=== PATIENT | male | born 1960 | race Caucasian/White ===

== ENCOUNTER 2017-04-14 16:45 | Emergency (ER) | payer BC ==
[2017-04-14 16:54] VITALS: RESP 18
--- NOTE | 2017-04-14 17:16 | EDPHY ---
H & P Time Seen by Provider: 04/14/17 17:00 HPI/ROS: CHIEF COMPLAINT: Chest pain HISTORY OF PRESENT ILLNESS: The patient is an anticoagulated 56 y/o male with a history of multiple DVTs and a pulmonary embolism in 2007, arriving with his , complaining of chest pain onset this afternoon. This afternoon he began experiencing pain in the upper right half of his chest that extended in to his back and was worse with deep breathing. The pain is moderate. He describes it as "feeling similar to the previous PE". Associated with increasing anxiety. He denies any pain or swelling in his legs, shortness of breath or any other associated symptoms. No change with exertion and no recent URI symptoms. REVIEW OF SYSTEMS: Constitutional: No fever, no chills Eyes: No visual changes ENT: No sore throat Respiratory: No cough Gastrointestinal: No nausea, no vomiting, no abdominal pain Genitourinary:no dysuria Musculoskeletal: No leg pain or swelling Skin: No rash Neurological: Headache, no numbness, no weakness Psychiatric: Anxiety Past Medical/Surgical History: 1. DVTs 2. PE in 2007 3. Anxiety 4. Tension headaches Social History: at bedside, lives in [place], employed Smoking Status: Never smoked Physical Exam: General Appearance: Alert, pleasant, appears anxious Eyes: Pupils equal and round, no conjunctival pallor or injection ENT, Mouth: Mucous membranes moist Neck: Normal inspection Respiratory: No chest wall tenderness, Lungs are clear to auscultation Cardiovascular: Regular rate and rhythm Gastrointestinal: Abdomen is soft and non-tender Neurological: A&O, nonfocal exam Skin: Warm and dry, no rash Extremities: Nontender, no pedal edema Psychiatric: Anxious Constitutional: Initial Vital Signs Temperature (C) 37.0 C 04/14/17 16:51 Heart Rate 68 04/14/17 16:51 Respiratory Rate 18 04/14/17 16:51 Blood Pressure 164/107 H 04/14/17 16:51 O2 Sat (%) 99 04/14/17 16:51 O2 Delivery Mode Room Air Allergies/Adverse Reactions: No Known Allergies Allergy (Unverified 04/14/17 16:54) Home Medications: Medication Instructions Recorded Ativan 04/14/17 Lexapro 04/14/17 Remeron 04/14/17 Warfarin Sodium 6 mg 04/14/17 Medical Decision Making - Diagnostics EKG Interpretation: EKG interpreted by me reveals normal sinus rhythm, rate 68, no ST or T segment changes. Interpretation: Normal EKG Imaging Results: Imaging Impressions Chest/Thorax CTA 04/14/17 17:17 Impression: 1. No evidence of acute thrombopulmonary embolic disease. 2. Clear lungs. No acute process. Findings discussed with Emergency Department physician, Renee Espinoza on 2016, 1833 hours. Imaging: Discussed imaging studies w/ special technical operations officer Radiologist, I viewed and interpreted images myself ED Course/Re-evaluation: The patient is an anticoagulated 56 y/o male with a history of PE and DVTs in 2007 complaining of right-sided chest pain onset this afternoon. Given previous pulmonary embolism, and typical PE symptoms for him, I will proceed with CT pulmonary angiogram. I do not suspect acute coronary syndrome in this patient with no risk factors, prolonged symptoms and atypical pain. 1833: I spoke with radiology regarding this patient. CT is negative. Plan for discharge. Follow-up instructions and return precautions given. Differential Diagnosis: Differential diagnosis includes though it is not limited to pneumonia, pneumothorax, pulmonary embolism, aortic dissection, pericarditis, acute coronary syndrome. - Data Points Laboratory Results: Laboratory Results 04/14/17 17:10 04/14/17 17:10 04/14/17 04/14/17 04/14/17 17:10 17:10 17:10 WBC 6.74 10^3/uL 10^3/uL (3.80-9.50) RBC 5.10 10^6/uL 10^6/uL (4.40-6.38) Hgb 15.6 g/dL g/dL (13.7-17.5) POC Hgb Hct 46.9 % % (40.0-51.0) POC Hct MCV 92.0 fL fL (81.5-99.8) MCH 30.6 pg pg (27.9-34.1) MCHC 33.3 g/dL g/dL (32.4-36.7) RDW 12.9 % % (11.5-15.2) Plt Count 224 10^3/uL 10^3/uL (150-400) MPV 8.9 fL fL (8.7-11.7) Neut % (Auto) 66.5 % % (39.3-74.2) Lymph % (Auto) 22.7 % % (15.0-45.0) [place] % (Auto) 8.3 % % (4.5-13.0) Eos % (Auto) 1.6 % % (0.6-7.6) Baso % (Auto) 0.6 % % (0.3-1.7) Nucleat RBC Rel Count 0.0 % % (0.0-0.2) Absolute Neuts (auto) 4.48 10^3/uL 10^3/uL (1.70-6.50) Absolute Lymphs (auto) 1.53 10^3/uL 10^3/uL (1.00-3.00) Absolute Monos (auto) 0.56 10^3/uL 10^3/uL (0.30-0.80) Absolute Eos (auto) 0.11 10^3/uL 10^3/uL (0.03-0.40) Absolute Basos (auto) 0.04 10^3/uL 10^3/uL (0.02-0.10) Absolute Nucleated RBC 0.00 10^3/uL 10^3/uL (0-0.01) Immature Gran % 0.3 % % (0.0-1.1) Immature Gran # 0.02 10^3/uL 10^3/uL (0.00-0.10) PT 24.3 SEC H SEC (12.0-15.0) INR 2.16 H (0.83-1.16) POC Sodium Sodium 142 mEq/L mEq/L (134-144) POC Potassium Potassium 4.3 mEq/L mEq/L (3.5-5.2) POC Chloride Chloride 104 mEq/L mEq/L (97-110) Carbon Dioxide 27 mEq/l mEq/l (22-31) Anion Gap 11 mEq/L mEq/L (8-16) POC BUN BUN 15 mg/dL mg/dL (7-23) Creatinine 1.0 mg/dL mg/dL (0.7-1.3) POC Creatinine Estimated GFR > 60 Glucose 94 mg/dL mg/dL (70-100) POC Glucose Calcium 9.4 mg/dL mg/dL (8.5-10.4) 04/14/17 17:08 WBC RBC Hgb POC Hgb 16.3 gm/dL gm/dL (13.7-17.5) Hct POC Hct 48 % % (40-51) MCV MCH MCHC RDW Plt Count MPV Neut % (Auto) Lymph % (Auto) [place] % (Auto) Eos % (Auto) Baso % (Auto) Nucleat RBC Rel Count Absolute Neuts (auto) Absolute Lymphs (auto) Absolute Monos (auto) Absolute Eos (auto) Absolute Basos (auto) Absolute Nucleated RBC Immature Gran % Immature Gran # PT INR POC Sodium 142 mEq/L mEq/L (134-144) Sodium POC Potassium 4.2 mEq/L mEq/L (3.3-5.0) Potassium POC Chloride 104 mEq/L mEq/L (97-110) Chloride Carbon Dioxide Anion Gap POC BUN 16 mg/dL mg/dL (7-23) BUN Creatinine POC Creatinine 1.1 mg/dL mg/dL (0.7-1.3) Estimated GFR Glucose POC Glucose 93 mg/dL mg/dL (70-100) Calcium Point of Care Test Results: 04/14/17 17:08 POC Sodium 142 POC Potassium 4.2 POC Chloride 104 POC BUN 16 POC Creatinine 1.1 POC Glucose 93 Departure - Departure Disposition: Home, Routine, Self-Care Clinical Impression: Chest pain Qualifiers: Chest pain type: chest pain on breathing Qualified Code(s): R07.1 - Chest pain on breathing Condition: Good Instructions: Chest Pain (ED) Additional Instructions: 1. Continue taking your Coumadin as prescribed. 2. Follow-up with your Primary Care Provider in 2-3 days for unimproved symptoms. 3. Return to the ED for shortness of breath, worsening chest pain, or worsening of condition. Referrals: Kaleb Newman MD [Primary Care Provider] - As per Instructions Report Scribed for: Renee Espinoza Report Scribed by: Cecile Martinez Date of Report: 04/14/17 Time of Report: 17:20 Physician Review and Approval Statement: 04/14/17 17:20 Portions of this note were transcribed by a medical records coordinator. I personally performed a history, physical exam, medical decision making, and confirmed accuracy of information the transcribed note.
[2017-04-14 17:24] LABS: PLATELET COUNT 224 10^3/uL (150-400)
[2017-04-14 17:30] LABS: INR 2.16 (0.83-1.16); PROTIME(PATIENT) 24.3 SEC (12.0-15.0)
[2017-04-14] MEDS ORDERED: IOPAMIDOL (ISOVUE 370) 100 ML BTL IV ONE (17:57)
[2017-04-14 18:15] VITALS: BP 152/99; PULSE 78; TEMP 98.4; O2SAT 96
--- NOTE | 2017-04-14 21:23 | CPEKG ---
Heart Rate: 68 RR Interval: 882 P-R Interval: 168 QRSD Interval: 96 QT Interval: 400 QTC Interval: 426 P [place]: 72 QRS [place]: 56 T Wave [place]: 40 EKG Severity - NORMAL ECG - EKG Impression: SINUS RHYTHM Electronically Signed By: Renee Espinoza 14-Apr-2017 21:42:25
--- NOTE | 2017-04-14 21:23 | CPEKG ---
Heart Rate: 68 RR Interval: 882 P-R Interval: 168 QRSD Interval: 96 QT Interval: 400 QTC Interval: 426 P [place]: 72 QRS [place]: 56 T Wave [place]: 40 EKG Severity - NORMAL ECG - EKG Impression: SINUS RHYTHM Electronically Signed By: Renee Espinoza 14-Apr-2017 21:42:25
== END 2017-04-14 21:29 | disposition home or self-care (01) ==
DX: R07.1 Chest pain on breathing (principal); Z79.01 Long term (current) use of anticoagulants
CPT/HCPCS: 82947-QW; Q9967